=== PATIENT | female | born 1955 | race Caucasian/White ===

== ENCOUNTER 2018-02-24 14:57 | Outpatient (CLI) | payer OTHER ==
--- NOTE | 2018-02-24 16:27 | ULT ---
LEFT LOWER EXTREMITY VENOUS DUPLEX ULTRASOUND INCLUDING COLOR AND SPECTRAL DOPPER IMAGING: HISTORY: A 62-year-old female with a history of left leg pain for three days. Diffuse edema. TECHNIQUE: Exam performed from groin to ankle, including visualized greater saphenous, common femoral, superfici al femoral, profunda femoral, popliteal, trifurcation, and posterior tibial vein regions. FINDINGS: There is phasic flow at all levels with normal compressibility and normal augmentation. No intralumi nal thrombus. IMPRESSION: No evidence for deep venous thrombosis. POS: C
== END 2018-02-24 14:58 | disposition home or self-care (01) ==
LOC: ULT 14:57
PROVIDERS: ATTEND Family Medicine
DX: R60.0 Localized edema (principal)

== ENCOUNTER 2018-12-22 11:11 | Outpatient (CLI) | payer MEDICARE ==
--- NOTE | 2018-12-22 12:11 | RAD ---
EXAM: XR Cervical Spine 4 View Min DATE: 12/22/2018 12:00 AM INDICATION: Neck pain and stiffness COMPARISON: None. FINDING: There is mild anterior translation of C4 on C5 and C5-C6. There is moderate multilevel face t degenerative change. There is mild disc degenerative disease at C5-6. Prevertebral soft tissues are normal appearing. No appreciable osseous neural foraminal narrowing is evident. Lateral masses ar e symmetric. Lung apices are clear. IMPRESSION:Mild to moderate spondylosis of the cervical spine
== END 2018-12-22 11:12 | disposition home or self-care (01) ==
LOC: BICRAD 11:11
PROVIDERS: ATTEND Family Medicine
DX: M54.2 Cervicalgia (principal); M43.6 Torticollis; M47.812 Spondylosis without myelopathy or radiculopathy, cervical region
CPT/HCPCS: 72050

== ENCOUNTER 2019-01-18 08:56 | Outpatient (CLI) | payer MEDICARE ==
--- NOTE | 2019-01-18 10:40 | MRI ---
MRI CERVICAL SPINE WITHOUT IV CONTRAST: 01/18/19 HISTORY: Cervical spine pain. Neck stiffness. Neck pain over three month duration. FINDINGS: The vertebral body heights and marrow signal are maintained. Disc osteophyte complexes and cortical h ypertrophic changes are seen at multiple levels. There is moderate right neural foraminal stenosis at C3-4 level. No definite cord compression is seen. The cervical spinal cord demonstrates normal cours e, caliber and signal. No syringomyelia, cord edema, myelomalacia is seen. No tonsillar herniation is identified. IMPRESSION: Cervical spondylosis with moderate right neural foraminal stenosis at C3-4 level. POS: [facility]I
== END 2019-01-18 08:57 | disposition home or self-care (01) ==
LOC: BICMRI 08:56
PROVIDERS: ATTEND Family Medicine
DX: M54.2 Cervicalgia (principal); M43.6 Torticollis; M47.812 Spondylosis without myelopathy or radiculopathy, cervical region; M48.061 Spinal stenosis, lumbar region without neurogenic claudication
CPT/HCPCS: 72141

== ENCOUNTER 2020-01-02 10:39 | Outpatient (CLI) | payer MEDICARE, OTHER ==
[2020-01-03 12:10] LABS: SARS-CoV-2 MS2 Positive; SARS-CoV-2 N Gene Negative; SARS-CoV-2 S Gene Negative; SARS-CoV-2 by NAA Not Detected (NotDetected); SARS-CoV-2 orf1ab Negative
== END 2020-01-02 10:40 | disposition home or self-care (01) ==
LOC: LABSCS 10:39
PROVIDERS: ATTEND Specialist
DX: Z01.812 Encounter for preprocedural laboratory examination (principal); Z11.59 Encounter for screening for other viral diseases
CPT/HCPCS: 87635; U0003

== ENCOUNTER 2020-01-06 09:25 | Outpatient (CLI) | payer MEDICARE ==
--- NOTE | 2020-01-06 10:30 | RAD ---
Esophagram air contrast HISTORY: Dysphagia. Fluoroscopy time 1.1 minutes. Air contrast and single column barium evaluation shows slight decrease in primary and secondary peris talsis. Moderate degree of nonpropulsive, tertiary type contractions of the esophagus. Primarily with moderate amount of gastroesophageal reflux. Minimal sliding hiatal hernia. A 12 mm barium tablet traversed the esophagus without holdup. No focal mass or obstruction. IMPRESSION : Minimal hiatal hernia. Moderate amount of gastroesophageal reflux. Resultant tertiary contractions of the esophagus. Mild presbyesophagus.
== END 2020-01-06 09:26 | disposition home or self-care (01) ==
LOC: RAD 09:25
PROVIDERS: ATTEND Specialist
DX: R13.10 Dysphagia, unspecified (principal); K44.9 Diaphragmatic hernia without obstruction or gangrene; K21.9 Gastro-esophageal reflux disease without esophagitis; K22.8 Other specified diseases of esophagus
CPT/HCPCS: 74220

== ENCOUNTER 2021-04-10 09:45 | Outpatient (CLI) | payer MEDICARE ==
[2021-04-10 10:59] LABS: Mean Corpuscular HGB CONC 33.6 g/dL (32.0-36.0); Mean Corpuscular Hemoglobin 31.1 pg (27.0-33.0); Mean Corpuscular Volume 92.5 fl (81.6-98.3); Mean Platelet Volume 8.9 fl (7.4-10.4); Platelet Count 324 10x3/uL (150-450); RBC Distribution Width 11.9 % (11.5-14.5); Red Blood Cell (RBC) Count 3.86 10x6/uL (3.90-5.03); White Blood Cell (WBC) Count 4.6 10x3/uL (3.5-10.5)
[2021-04-10 11:24] LABS: Anion Gap 12 mmol/L (10-20); BUN (Urea Nitrogen) 8 mg/dL (9.8-20.1); Calc. Creatinine Clearance 0 mL/min (70-130); Carbon Dioxide 26 mmol/L (23-31); Chloride 103 mmol/L (98-107); Glucose 91 mg/dL (80-115); Potassium 4.1 mmol/L (3.5-5.1); Sodium 137 mmol/L (136-145)
[2021-04-10 17:08] LABS: SARS-CoV-2 PCR by NAA Not Detected (NotDetected)
== END 2021-04-10 09:46 | disposition home or self-care (01) ==
LOC: LABBT 09:45
PROVIDERS: ATTEND Neurological Surgery
DX: Z01.818 Encounter for other preprocedural examination (principal); M43.16 Spondylolisthesis, lumbar region; Z20.822 Contact with and (suspected) exposure to COVID-19
CPT/HCPCS: 80048; 85027; 93005; U0003; U0005; 93010

== ENCOUNTER 2021-04-15 05:57 | Day surgery (SDC) | payer MEDICARE ==
[2021-04-12 14:16] VITALS: BMI 25.0
[2021-04-15] MEDS ORDERED: ceFAZolin Sodium (SDC) 2 GM/100 ML BAG ONE (06:19)
[2021-04-15] MEDS ORDERED: Dexmedetomidine 200 MCG/2 ML VIAL ONE (07:10)
[2021-04-15] MEDS ORDERED: Fentanyl 250 MCG/5 ML VIAL ONE (07:10)
[2021-04-15] MEDS ORDERED: Dexamethasone 20 MG/5 ML VIAL ONE (07:32)
[2021-04-15] MEDS ORDERED: Glycopyrrolate 0.2 MG/ML 5 ML SYRINGE ONE (07:32)
[2021-04-15] MEDS ORDERED: ePHEDrine 50 MG/ML VIAL ONE (07:32)
[2021-04-15] MEDS ORDERED: Rocuronium Bromide 10 MG/ML (10ML VIAL) ONE (07:32)
[2021-04-15] MEDS ORDERED: Ondansetron PF 4 MG/2 ML Vial ONE (07:32)
[2021-04-15] MEDS ORDERED: PROPOFOL 200 MG/20 ML VIAL ONE (07:32)
[2021-04-15] MEDS ORDERED: Lidocaine 1% PF 5 ML VIAL ONE (07:32)
[2021-04-15] MEDS ORDERED: Fentanyl 100 MCG/2 ML VIAL ONE (09:16)
[2021-04-15] MEDS ORDERED: Acetaminophen/Codeine 30-300mg Tablet ONE (10:41)
[2021-04-15] MEDS ORDERED: traMADol HCl 50 MG TAB ONE (10:41)
== END 2021-04-15 12:00 | disposition home or self-care (01) ==
LOC: SDC 05:57
PROVIDERS: ATTEND Neurological Surgery
PROC: 0SG0071 Fusion of Lumbar Vertebral Joint with Autologous Tissue Substitute, Posterior Approach, Posterior Column, Open Approach (ICD-10-PCS; principal; 2021-04-15)
DX: M43.16 Spondylolisthesis, lumbar region (principal); M48.061 Spinal stenosis, lumbar region without neurogenic claudication; J45.909 Unspecified asthma, uncomplicated; K21.9 Gastro-esophageal reflux disease without esophagitis; E78.5 Hyperlipidemia, unspecified; I10 Essential (primary) hypertension; F12.10 Cannabis abuse, uncomplicated; Z79.1 Long term (current) use of non-steroidal anti-inflammatories (NSAID); Z79.899 Other long term (current) drug therapy; Z88.5 Allergy status to narcotic agent
CPT/HCPCS: 76000; C1713; C1768; J0690; J1100; J2405; J2704; J3010; J3370; J3490

== ENCOUNTER 2021-04-30 09:41 | Outpatient (CLI) | payer MEDICARE | END 2021-04-30 09:42 | disposition home or self-care (01) | LOC: TBSIIMAG 09:41 | PROVIDERS: ATTEND Neurological Surgery | DX: M43.16 Spondylolisthesis, lumbar region (principal); Z98.890 Other specified postprocedural states | CPT/HCPCS: 72100 ==

== ENCOUNTER 2021-06-20 13:05 | Outpatient (CLI) | payer MEDICARE | END 2021-06-20 13:06 | disposition home or self-care (01) | LOC: TBSIIMAG 13:05 | PROVIDERS: ATTEND Neurological Surgery | DX: M43.16 Spondylolisthesis, lumbar region (principal); M25.551 Pain in right hip; M47.816 Spondylosis without myelopathy or radiculopathy, lumbar region; Z98.890 Other specified postprocedural states | CPT/HCPCS: 72100 ==

== ENCOUNTER 2021-10-24 14:23 | Outpatient (CLI) | payer MEDICARE | END 2021-10-24 14:24 | disposition home or self-care (01) | LOC: TBSIIMAG 14:23 | PROVIDERS: ATTEND Neurological Surgery | DX: M47.26 Other spondylosis with radiculopathy, lumbar region (principal); Z98.890 Other specified postprocedural states | CPT/HCPCS: 72100 ==

== ENCOUNTER 2023-12-11 14:47 | Outpatient (CLI) | payer MEDICARE | END 2023-12-11 14:48 | disposition home or self-care (01) | LOC: BICMAMMO 14:47 | PROVIDERS: ATTEND Family Medicine | DX: Z12.31 Encounter for screening mammogram for malignant neoplasm of breast (principal); N64.4 Mastodynia | CPT/HCPCS: 76642; 77066; G0279 ==